=== PATIENT | male | born 1975 | race Caucasian/White ===

== ENCOUNTER 2020-08-25 12:13 | Emergency (ER) | payer OTHER ==
[~2020-08-25] VITALS: Ht 188 cm; Wt 108.9 kg
[2020-08-25] MEDS ORDERED: LIPITOR 20 MG T20 M1 PO (12:25)
[2020-08-25] MEDS ORDERED: AMOXICILLIN 50500 MG PO (12:25)
[2020-08-25] MEDS ORDERED: OMEPRAZOLE 20 M20 M1 PO (12:25)
[2020-08-25] MEDS ORDERED: TIZANIDINE HCL4 M1 PO (12:26)
[2020-08-25 12:57] LABS: ABSOLUTE EOSINOPHILS 0.1 thou/uL (0.0-0.7); ABSOLUTE LYMPHOCYTES 1.3 thou/uL (0.8-5.3); ABSOLUTE MONOCYTES 0.4 thou/uL (0.0-1.2); ABSOLUTE NEUTROPHILS 4.3 thou/uL (1.6-8.1); BASOPHILS 0.7 %; EOSINOPHILS 0.9 %; HEMATOCRIT 44.5 % (42.0-52.0); HEMOGLOBIN 15.9 gm/dL (14.0-18.0); LYMPHOCYTES 22.2 %; MCH 31.7 pg (26.0-34.0); MCHC 35.7 g/dL (28.0-37.0); MCV 88.7 fL (80.0-100.0); MPV 7.5 fl. (7.2-11.1); NUCLEATED RBCS 0 /100WBC; PLATELET COUNT* 305 thou/uL (150-400); POLYS 70.2 %; RBC 5.02 mil/uL (4.50-6.00); RDW-CV 12.3 % (10.5-14.5); WBC 6.1 thou/uL (4.0-11.0)
[2020-08-25 13:07] LABS: CALCIUM 8.6 mg/dL (8.5-10.1); POTASSIUM 4.1 mmol/L (3.5-5.1)
[2020-08-25 13:09] LABS: PROTIME 10.5 Seconds (9.20-11.50)
[2020-08-25 13:12] LABS: TOTAL BILIRUBIN 0.6 mg/dL (<0.1-1.0); TOTAL PROTEIN 7.2 g/dL (6.4-8.2)
[2020-08-25 13:38] VITALS: BP 142/87
--- NOTE | 2020-08-27 09:52 | EKG ---
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: CANDIDA : 1975 Requested By: Faraz Estrada Order Number: [id number] MD: Francisco Javier Shrestha Measurements Intervals [place] Rate: 70 P: 69 LA: 178 QRS: 72 QRSD: 112 T: 18 QT: 390 QTc: 421 Interpretive Statements Sinus rhythm Borderline intraventricular conduction delay No previous ECG available for comparison Electronically Signed On 08-27-2020 9:52:00 CDT by Francisco Javier Shrestha [email or web address] <ELECTRONICALLY SIGNED> By: Francisco Javier Shrestha MD, [facility] 08/27/20 0952 1309 130 Francisco Javier Shrestha MD, [facility] /EPI
== END 2020-08-25 13:39 | disposition home or self-care (01) ==
LOC: M.ERS 12:13
PROVIDERS: Family Medicine
DX: R20.2 Paresthesia of skin (principal); R61 Generalized hyperhidrosis; E78.00 Pure hypercholesterolemia, unspecified; Z98.890 Other specified postprocedural states

== ENCOUNTER → 2020-08-30 | Outpatient (CLI) | payer OTHER ==
[~2020-08-30] MED LIST: AMOXICILLIN 50500 MG PO; LIPITOR 20 MG T20 M1 PO; OMEPRAZOLE 20 M20 M1 PO; TIZANIDINE HCL4 M1 PO
== END ==
LOC: M.ULTRA 11:12
PROVIDERS: ATTEND Internal Medicine
DX: M19.072 Primary osteoarthritis, left ankle and foot (principal); I82.532 Chronic embolism and thrombosis of left popliteal vein